=== PATIENT | male | born 1985 | race Asian ===

== ENCOUNTER 2016-12-15 21:04 | Emergency (ER) | payer MEDICAID, OTHER ==
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
[2016-12-15] MEDS ORDERED: IBUPROFEN 200 MG TAB PO ONE (22:07)
[2016-12-15 22:42] VITALS: O2SAT 98
[2016-12-15 22:46] VITALS: BP 133/97; PULSE 105; RESP 16; TEMP 98.4
== END 2016-12-15 22:45 | disposition home or self-care (01) ==
LOC: EDUNIT#
DX: S40.212A Abrasion of left shoulder, initial encounter (principal); V47.5XXA Car driver injured in collision with fixed or stationary object in traffic accident, initial encounter; Y92.410 Unspecified street and highway as the place of occurrence of the external cause; Y99.8 Other external cause status; Y93.89 Activity, other specified